=== PATIENT | female | born 1945 | race Caucasian/White ===

== ENCOUNTER 2021-07-08 08:45 | Observation (INO) | payer MEDICARE, OTHER ==
[~2021-07-08] VITALS: Ht 162.6 cm; Wt 79.4 kg
[2021-07-08 10:25] LABS: HEMOGLOBIN 13.1 gm/dl (12.3-15.3); RED BLOOD COUNT 4.38 M/UL (4.00-5.10); WHITE BLOOD COUNT 3.6 K/UL (4.5-11.0)
[2021-07-08 10:59] LABS: BUN/CREATININE RATIO 33 (0-10)
[2021-07-08] MEDS ORDERED: FLONASE 0.05% N16 GM (11:58)
[2021-07-08] MEDS ORDERED: JARDIANCE10 MG PO (11:59)
[2021-07-08] MEDS ORDERED: CARVEDILOL6.25 MG PO (11:59)
[2021-07-08] MEDS ORDERED: LISINOPRIL40 MG PO (12:00)
[2021-07-08] MEDS ORDERED: FEXOFENADINE H180 MG PO (12:00)
[2021-07-08] MEDS ORDERED: OMEPRAZOLE40 MG PO (12:01)
[2021-07-08] MEDS ORDERED: MIRTAZAPINE15 MG PO (12:01)
[2021-07-08] MEDS ORDERED: VENLAFAXINE H37.5 M1 PO (12:02)
[2021-07-08] MEDS ORDERED: ADVAIR 250-501 EACH INH (12:02)
[2021-07-08] MEDS ORDERED: LANTUS SOL100 UNIT/1 SQ (12:03)
[2021-07-08] MEDS ORDERED: HUMALOG100 UNIT/3 SQ (12:04)
[2021-07-08] MEDS ORDERED: LEVOTHYROXINE100 MCG PO (12:05)
[2021-07-08] MEDS ORDERED: PROAIR HFA8.5 GM INH (12:05)
[2021-07-09 06:37] LABS: HEMOGLOBIN 14.3 gm/dl (12.3-15.3); RED BLOOD COUNT 4.75 M/UL (4.00-5.10); WHITE BLOOD COUNT 3.3 K/UL (4.5-11.0)
[2021-07-09 07:00] LABS: BUN/CREATININE RATIO 29 (0-10)
[2021-07-09] MEDS ORDERED: CAPSAICIN60 GM TOP (16:06)
[2021-07-09] MEDS ORDERED: CARVEDILOL3.125 MG PO (16:06)
[2021-07-09] MEDS ORDERED: BENADRYL 1% CRE15 GM TOP (16:06)
== END 2021-07-09 17:06 | disposition home or self-care (01) ==
LOC: ER1 08:45 → CDU 11:14 → MED SURG 4 11:14
PROVIDERS: Emergency Medicine; Physician Assistant Medical; ADMIT Internal Medicine
DX: M25.512 Pain in left shoulder (principal); I20.0 Unstable angina; Z20.822 Contact with and (suspected) exposure to COVID-19; E11.9 Type 2 diabetes mellitus without complications; I10 Essential (primary) hypertension; E78.5 Hyperlipidemia, unspecified; Z88.0 Allergy status to penicillin; Z88.2 Allergy status to sulfonamides
CPT/HCPCS: ECHO; 36415; 70450; 71045; 73030; 80048; 80053; 80061; 82550; 82553; 82962; 83735; 84484; 85025; 85027; 93005; 93306; 93880; 94664; 94760; 99285; G0378; U0002